=== PATIENT | female | born 1940 | race Caucasian/White ===

== ENCOUNTER 2021-09-02 07:31 | Inpatient (IN) | payer MEDICARE, OTHER ==
[2021-09-02 08:05] LABS: #Basophils 0.1 thou/uL (0.0-0.2); #Eosinphils 0.1 thou/uL (0.0-0.7); #Lymphocytes 2.5 thou/uL (1.20-3.40); #Monocytes 0.9 thou/uL (0.11-0.59); #Neutrophils 13.5 thou/uL (1.40-6.50); %Basophils 0.5 % (0.0-1.0); %Eosinophils 0.8 % (0.0-10.0); %Lymphocytes 14.7 % (21.0-51.0); %Monocytes 5.5 % (0.0-10.0); %Neutrophils 78.5 % (42.0-75.0); Hemoglobin 13.3 g/dL (12.0-16.0); Mean Corpuscular HGB CONC 33.8 g/dL (32.0-36.0); Mean Corpuscular Hemoglobin 31.4 pg (27.0-31.0); Mean Corpuscular Volume 92.8 fL (78.0-98.0); Mean Platelet Volume 7.7 fL (7.4-10.4); Platelet Count 266 thou/uL (130-400); RBC Distribution Width 12.5 % (11.5-14.5); Red Blood Cell (RBC) Count 4.25 mill/uL (4.20-5.40); White Blood Cell (WBC) Count 17.1 thou/uL (4.8-10.8)
[2021-09-02 08:22] LABS: Actual Bicarbonate (HCO3a) 21.4 mEq/L (22-28); Analyzer IN Cardio ER; CO2 Tension 29.4 mmHg (35.0-45.0); Calcium, Ionized (arterial) 1.12 mmol/L (1.12-1.30); Carboxyhemoglobin (COHb) 0.1 gm% (0.0-3.0); Hemoglobin (Hb) 13.1 g/dL (12.0-16.0); O2 Tension (PaO2), arterial 74.4 mmHg (> 70.0); Potassium - ABG Lab 3.18 mmol/L (3.70-5.30); pH, Arterial 7.48 (7.35-7.45)
[2021-09-02 08:23] LABS: Puncture Site RBA
[2021-09-02 08:24] LABS: PTT 31.6 sec (22.9-36.1); Prothrombin Time 13.4 sec (12.0-14.7)
[2021-09-02 08:32] LABS: ALT (SGPT) 41 U/L (8-55); AST (SGOT) 66 U/L (5-34); Albumin 3.8 g/dL (3.4-4.8); Alkaline Phosphatase 65 U/L (40-110); Anion Gap 16 mmol/L (10-20); BUN (Urea Nitrogen) 18 mg/dL (9.8-20.1); Bilirubin, Total 1.5 mg/dL (0.2-1.2); Calc. Creatinine Clearance 0 mL/min (70-130); Calcium 8.7 mg/dL (7.8-10.44); Carbon Dioxide 22 mmol/L (23-31); Chloride 103 mmol/L (98-107); Globulin 2.8 g/dL (2.4-3.5); Glucose 306 mg/dL (83-110); Potassium 3.6 mmol/L (3.5-5.1); Protein, Total 6.6 g/dL (5.8-8.1); Sodium 137 mmol/L (136-145)
[2021-09-02] MEDS ORDERED: manNITOL 20% 500 ML ONE ×2 (08:32→08:33)
[2021-09-02] MEDS ORDERED: Mannitol 12.5 GM/50 ML ONE (08:34)
[2021-09-02 09:00] LABS: CKMB 6.7 ng/mL (0-6.6)
[2021-09-02] MEDS ORDERED: Iopamidol 370 76% 100 ML VIAL ONE (09:02)
[2021-09-02] MEDS ORDERED: cefTRIAXone\\ROCEPHIN 2 GM VIAL ONE (09:04)
[2021-09-02] MEDS ORDERED: Azithromycin 500 MG VIAL ONE (09:05)
[2021-09-02 09:10] LABS: Bilirubin Negative (Negative); Blood, Urine Negative (Negative); Clarity Clear (Clear); Glucose, Urine (Dipstick) 500 mg/dL (Negative); Ketone, Urine 20 mg/dL (Negative); Leukocyte Negative Leu/uL (Negative); Nitrite Negative (Negative); Protein, Urine (Dipstick) 10 mg/dL (Neg-Trace); Specific Gravity, Urine 1.023 (1.002-1.036); Urobilinogen Normal mg/dL (Less than 2)
[2021-09-02 09:46] LABS: SARS-CoV-2 NAA Rapid Test Not Detected (NotDetected)
[2021-09-02] MEDS ORDERED: Acetaminophen 650 MG Suppository PR PRN (09:46)
[2021-09-02] MEDS ORDERED: diphenhydrAMINE 50 MG/ML VIAL IVP PRN (09:46)
[2021-09-02] MEDS ORDERED: hydrALAZINE 20 MG/ML VIAL SLOW IVP PRN (09:46)
[2021-09-02] MEDS ORDERED: Ondansetron PF 4 MG/2 ML Vial IVP PRN (09:46)
[2021-09-02] MEDS ORDERED: Iopamidol-370 76% 500 ML 1 ML ONE (09:49)
[2021-09-02] MEDS ORDERED: Sodium Chloride 0.9% 1,000 ML IV SCH (10:00)
[2021-09-02] MEDS ORDERED: Propofol 1,000 MG/100 ML VIAL IV ONE (10:04)
[2021-09-02] MEDS ORDERED: Insulin Regular 300 UNITS/3 ML VIAL SC PRN (11:25)
[2021-09-02 11:30] VITALS: BMI 27.2
[2021-09-02] MEDS ORDERED: Lidocaine 1% (PF) 30 ML VIAL ONE (11:53)
[2021-09-02] MEDS ORDERED: Heparin 10,000 UNITS/ 10 ML VIAL ONE (11:53)
[2021-09-02] MEDS ORDERED: Fentanyl 100 MCG/2 ML VIAL ONE (11:54)
[2021-09-02 11:57] LABS: Hemoglobin A1c 5.9 % (4.0-6.0)
[2021-09-02] MEDS ORDERED: Morphine 4 MG/ML VIAL SLOW IVP PRN ×2 (11:57→12:30)
[2021-09-02] MEDS: niMODipine 30 MG CAP PER TUBE SCH ×2 (12:00→17:13)
[2021-09-02] MEDS ORDERED: Fentanyl CADD 100 ML IV SCH (12:15)
[2021-09-02] MEDS ORDERED: Fentanyl BOLUS 250 ML IVPB PRN (12:15)
[2021-09-02] MEDS ORDERED: Lorazepam 2 MG/ML VIAL SLOW IVP PRN (12:15)
[2021-09-02] MEDS ORDERED: DISCONTINUE PREVIOUS NARCOTIC PAIN MEDICATIONS AND BENZODIAZEPINES FS SCH (12:15)
[2021-09-02] MEDS ORDERED: Propofol 1,000 MG/100 ML VIAL IV PRN (12:15)
[2021-09-02] MEDS ORDERED: Morphine 2 MG/ML VIAL SLOW IVP PRN (12:15)
[2021-09-02] MEDS ORDERED: Propofol BOLUS 1,000 MG/100 ML VIAL IV PRN (12:15)
[2021-09-02] MEDS ORDERED: Rocuronium Bromide 10 MG/ML (10ML VIAL) ONE ×2 (12:39→15:24)
[2021-09-02] MEDS ORDERED: PROPOFOL 200 MG/20 ML VIAL ONE (12:39)
[2021-09-02] MEDS ORDERED: levETIRAcetam in NS 100 ML IVPB SCH (13:00)
[2021-09-02] MEDS ORDERED: FLU VACC QS2021-22(65YR UP)/PF 240 MCG/0.7 ML SYRINGE IM ONE (14:00)
[2021-09-02] MEDS ORDERED: levETIRAcetam in NS 1,000 MG in Premix Bag 1 BAG IVPB SCH (14:00)
[2021-09-02] MEDS ORDERED: Lidocaine 0.5%/Epinephrine 1:200,000 50 ml Vial ONE (14:11)
[2021-09-02] MEDS ORDERED: Phenylephrine 10 MG/ML VIAL ONE (15:24)
[2021-09-02 16:25] VITALS: TEMP 98.2
[2021-09-02 18:06] VITALS: BP 111/52
[2021-09-02] MEDS ORDERED: niCARdipine 25 MG in Sodium Chloride 0.9% 250 ML 250 ML IVPB SCH (18:30)
[2021-09-02] MEDS ORDERED: Famotidine/PF 20 mg/2ml Vial SLOW IVP SCH (21:00)
[2021-09-02] MEDS ORDERED: Senokot S 8.6-50 MG TAB PO SCH (21:00)
[2021-09-02] MEDS ORDERED: Lantus 1000 UNITS/10 ML VIAL SC SCH (21:00)
[2021-09-02] MEDS ORDERED: levETIRAcetam in NS 500 MG in Premix Bag 1 BAG IVPB SCH ×2 (21:00)
[2021-09-02] MEDS ORDERED: levETIRAcetam 1,000 MG in Sodium Chloride 0.9% 100 ML IVPB SCH (21:00)
[2021-09-03] MEDS ORDERED: Polyethylene Glycol 3350 17 GM Packet PER TUBE SCH (09:00)
== END 2021-09-02 20:55 | disposition short-term general hospital (02) | DRG 23 ==
LOC: ERS 07:31 → CCU 09:46
PROVIDERS: ADMIT Neurological Surgery; ATTEND Neurological Surgery
PROC: 009600Z Drainage of Cerebral Ventricle with Drainage Device, Open Approach (ICD-10-PCS; principal; 2021-09-02)
PROC: 5A1935Z Respiratory Ventilation, Less than 24 Consecutive Hours (ICD-10-PCS; 2021-09-02)
PROC: 30233R1 Transfusion of Nonautologous Platelets into Peripheral Vein, Percutaneous Approach (ICD-10-PCS; 2021-09-02)
DX: I60.6 Nontraumatic subarachnoid hemorrhage from other intracranial arteries (principal); J96.00 Acute respiratory failure, unspecified whether with hypoxia or hypercapnia; Z20.822 Contact with and (suspected) exposure to COVID-19; G93.41 Metabolic encephalopathy; G91.9 Hydrocephalus, unspecified; I62.00 Nontraumatic subdural hemorrhage, unspecified; R07.89 Other chest pain; E78.5 Hyperlipidemia, unspecified; E03.9 Hypothyroidism, unspecified; E11.9 Type 2 diabetes mellitus without complications; Z95.828 Presence of other vascular implants and grafts; Z79.82 Long term (current) use of aspirin; Z79.899 Other long term (current) drug therapy; Z87.891 Personal history of nicotine dependence; Z78.1 Physical restraint status
CPT/HCPCS: 0240U; 36215; 36224; 36415; 36430; 36600; 70450; 70496; 71045; 72125; 80053; 80177; 81003; 82553; 82805; 83036; 84484; 85025; 85610; 85730; 86850; 86900; 86901; 87040; 93005; 94002; 94760; C1713; C1729; C1887; J0456; J0696; J1644; J1815; J1953; J2001; J2150; J2370; J2704; J3010; J7050; J7799; P9035; Q9967